=== PATIENT | male | born 1980 | race Caucasian/White ===

== ENCOUNTER 2017-01-08 03:40 | Emergency (ER) | payer MEDICARE, MEDICAID ==
[~2017-01-08] VITALS: Ht 180.3 cm; Wt 82.6 kg
[~2017-01-08 03:40] MED LIST: ALPRAZOLAM0.5 MG PO; NORCO 5-325 TA1 EAC1 ORAL; PROZAC20 MG ORAL
[2017-01-08 04:00] VITALS: BP 115/81
--- NOTE | 2017-01-08 04:04 | Emergency Room Report ---
History of Present Illness General Chief Complaint: Upper Extremity Injury Source: Patient Present Illness HPI Is a 36-year-old male with psychiatric history. He is a smoker. He presents with chief complaint shows of breath on and off for several months now. No fever or chills. No nausea no vomiting. Worse with coughing. Worse with exertion. No other complaint. Went to [facility] for the same thing and said that there were talking about them on inhaler prednisone but never did. Denies any other complaint Allergies: Uncoded Allergies: LITHIUM (Allergy, 02/27/12) Patient History Past Medical History: see triage record, old chart reviewed, psych hx Past Surgical History: none Pertinent Family History: none Social History: Reports: smoking Immunizations: other Reviewed Nursing Documentation: PMH: Agreed, PSxH: Agreed Review of Systems Eye: Denies: blurred vision, eye pain ENT: Denies: ear pain, nose congestion, throat swelling Respiratory: Reports: cough, shortness of breath Cardiovascular: Denies: chest pain, palpitations Gastrointestinal: Denies: abdominal pain, diarrhea, nausea, vomiting Musculoskeletal: Denies: back pain, joint pain Skin: Denies: rash Neurological: Denies: headache, numbness Endocrine: Denies: increased thirst, increased urine Hematologic/Lymphatic: Denies: easy bruising All Other Systems: negative except mentioned in HPI Physical Exam Vital Signs Date Time Temp Pulse Resp B/P Pulse Ox O2 Delivery O2 Flow Rate FiO2 01/08/17 03:46 97.5 98 18 115/81 98 Room Air vitals normal Sp02 EP Interpretation: reviewed, normal General Appearance: well appearing, no apparent distress, alert Head: normocephalic, atraumatic Eyes: bilateral eye EOMI, bilateral eye PERRL ENT: hearing grossly normal, normal pharynx Neck: full range of motion, supple, no meningismus Respiratory: chest non-tender, wheezing - Slight Cardiovascular #1: regular rate, rhythm, no murmur Gastrointestinal: normal bowel sounds, non tender, no mass, no organomegaly, no bruit, non-distended Musculoskeletal: back normal, gait/station normal, normal range of motion Psychiatric: mood/affect normal Skin: warm/dry Medical Decision Making Diagnostic Impression: Primary Impression: Bronchitis Additional Impression: Methamphetamine abuse ER Course Patient presents with shortness of breath and wheezing probably secondary to smoking methamphetamine. Lungs clear after breathing treatment. No evidence of pneumonia, sepsis, PE, ACS to name a few. We'll discharge home. Chest X-Ray Diagnostic Results Chest X-Ray Diagnostic Results : Chest X-Ray Ordered: Yes # of Views/Limited/Complete: 1 View Indication: Shortness of Breath EP Interpretation: Yes Interpretation: no consolidation, no effusion, no pneumothorax Impression: No acute disease Interpreting ER Provider: Electronically signed by Joey Allen MD Last Vital Signs Date Time Temp Pulse Resp B/P Pulse Ox O2 Delivery O2 Flow Rate FiO2 01/08/17 03:46 97.5 98 18 115/81 98 Room Air Status: improved Disposition: HOME, SELF-CARE Condition: Stable Scripts Prednisone* (PREDNISONE*) 20 Mg Tablet 60 MG ORAL DAILY, #12 TAB Prov: JOEY ALLEN M.D. 01/08/17 Albuterol Sulfate* (ALBUTEROL SULFATE MDI*) 8.5 Gm Hfa.aer.ad 2 PUFF INH Q4H Y for cough/wheezing, #1 EA 0 Refills Prov: JOEY ALLEN M.D. 01/08/17 Additional Instructions: Abstain from drugs and alcohol. Followup with your DrAce in 2 to 3 days. Return if worse. JOEY ALLEN M.D. Jan 08, 2017 04:04
[2017-01-08] MEDS ORDERED: Albuterol ud Inhalation HHN ONE (04:15)
[2017-01-08] MEDS ORDERED: PredniSONE 20mg tab ORAL ONE (04:15)
[2017-01-08] MEDS ORDERED: PREDNISONE20 MG ORAL (04:45)
[2017-01-08] MEDS ORDERED: ALBUTEROL SULF8.5 GM INH (04:45)
[2017-01-08 04:50] VITALS: BP 107/77
--- NOTE | 2017-01-11 09:02 | Diagnostic Imaging Report ---
Indication: SOB Technique: XRAY CHEST 1 V Comparison: None. Findings: The cardiomediastinal silhouette is normal. The lungs are clear. There is no evidence of pleural fluid. There is mild scoliosis of the thoracic spine convex to the right. Impression: Mild scoliosis convex to the right. Otherwise negative chest.
== END 2017-01-08 04:50 | disposition home or self-care (01) ==
LOC: EMR 04:05
DX: J20.9 Acute bronchitis, unspecified (principal); F15.10 Other stimulant abuse, uncomplicated; F17.200 Nicotine dependence, unspecified, uncomplicated; Z88.8 Allergy status to other drugs, medicaments and biological substances; M41.9 Scoliosis, unspecified
CPT/HCPCS: 71010; 94640; 94760; 99284

== ENCOUNTER 2017-01-24 16:24 | Emergency (ER) | payer MEDICARE, MEDICAID ==
[~2017-01-24] VITALS: Ht 180.3 cm; Wt 81.6 kg
[~2017-01-24 16:24] MED LIST changes: +ALBUTEROL SULF8.5 GM INH; +PREDNISONE20 MG ORAL
[2017-01-24 16:29] VITALS: BP 119/70
[2017-01-24] MEDS ORDERED: Ketorolac 60mg Inj IM ONE (17:15)
--- NOTE | 2017-01-24 17:40 | Emergency Room Report ---
History of Present Illness General Chief Complaint: Lower Extremity Injury Source: Patient (Edda Dumas) Present Illness HPI 36 -year-old male presents to the emergency department claiming of discoloration , thickened skin and progressive pain to the bottom of the right foot for" quite some time" he denies fevers, chills or appreciable trauma. he states that the skin is male cracking and has become painful which she rates as 10/10 in severity. denies itching. Patient states he has been applying bacitracin. Patient states that initially he noticed a black dot on the bottom of his foot and he did not do anything about it and his condition has progressed. he states he is up-to-date with tetanus vaccination. Denies CP, Palpitations, LOC, AMS, dizziness, Changes in Vision, Sensation, paresthesias, or a sudden severe headache. (Edda Dumas) Allergies: Uncoded Allergies: LITHIUM (Allergy, 02/27/12) Patient History Past Medical History: see triage record Past Surgical History: none Pertinent Family History: none Immunizations: UTD Reviewed Nursing Documentation: PMH: Agreed, PSxH: Agreed (Edda Dumas) Nursing Documentation-PMH Past Medical History: No History, Except For History Of Psychiatric Problem: Yes - depression, bipolar (Edda Dumas) Review of Systems All Other Systems: negative except mentioned in HPI (Edda Dumas) Physical Exam Vital Signs Date Time Temp Pulse Resp B/P Pulse Ox O2 Delivery O2 Flow Rate FiO2 01/24/17 16:29 98.2 81 18 119/70 98 Room Air Sp02 EP Interpretation: reviewed, normal General Appearance: no apparent distress, alert, GCS 15, non-toxic Head: normocephalic, atraumatic Eyes: bilateral eye normal inspection, bilateral eye PERRL ENT: hearing grossly normal, normal voice Neck: full range of motion, supple/symm/no masses Respiratory: lungs clear, normal breath sounds, speaking full sentences Cardiovascular #1: regular rate, rhythm Cardiovascular #2: 2+ dorsalis pedis (R), 2+ dorsalis pedis (L) Musculoskeletal: back normal, gait/station normal, normal range of motion, tender - TTP localized to the lesion on the plantar aspect of the right foot. no bony ttp Neurologic: alert, oriented x3, responsive, motor strength/tone normal, sensory intact, speech normal Psychiatric: judgement/insight normal, memory normal, other - flat affect. Skin: normal color, no rash, warm/dry, well hydrated, other - 3.5 cm Callous of the plantar aspect of the right foot. with dry cracking, no secondary infection at this time. no blisters, vessicles, erytehma, increased temperature to palpation or discharge noted. (Edda Dumas) Medical Decision Making PA Attestation Dr. Galaviz is my supervising Physician whom patient management has been discussed with. (Edda Dumas) Diagnostic Impression: Primary Impression: Callus of foot ER Course 36 -year-old male presents to the emergency department claiming of discoloration , thickened skin and progressive pain to the bottom of the right foot for" quite some time" he denies fevers, chills or appreciable trauma. he states that the skin is male cracking and has become painful which she rates as 10/10 in severity. denies itching. Patient states he has been applying bacitracin. Patient states that initially he noticed a black dot on the bottom of his foot and he did not do anything about it and his condition has progressed. he states he is up-to-date with tetanus vaccination. Denies CP, Palpitations, LOC, AMS, dizziness, Changes in Vision, Sensation, paresthesias, or a sudden severe headache. Ddx considered but are not limited to cellulitis, Callous, dermatitis, Psoriasis, eczema, tinea Vital signs: are WNL, pt. is afebrile H&PE are most consistent with 3.5 cm Callous of the plantar aspect of the right foot. with dry cracking, no secondary infection at this time. ORDERS: none required at this time, the diagnosis is clinical ED INTERVENTIONS: -The foot was cleaned by brewery technician. -Bacitracin is applied. d/w pt. that he will be prescribed topical creams, but it is imperative that he follow up with a household personal assistant. d/w pt. that he will receive a list of primary care clinics as a resource to use if he does not have a pcp in mind. d/w pt. that he will need a referral for household personal assistant. DISCHARGE: At this time pt. is stable for d/c to home. Will provide printed patient care instructions, and any necessary prescriptions. Care plan and follow up instructions have been discussed with the patient prior to discharge. (Edda Dumas) ER Course I examined this patient and agree with the treatment plan. (Prashanth Galaviz M.D.) Last Vital Signs Date Time Temp Pulse Resp B/P Pulse Ox O2 Delivery O2 Flow Rate FiO2 01/24/17 16:29 98.2 81 18 119/70 98 Room Air (Edda Dumas) Disposition: HOME, SELF-CARE Condition: Stable Scripts Ibuprofen* (MOTRIN*) 600 Mg Tablet 600 MG ORAL THREE TIMES A DAY, #20 TAB 0 Refills Prov: Edda Dumas 01/24/17 Bacitracin/Polymyxin B Sulfate (BACITRACIN-POLYMYXIN OINTMENT) 28.35 Gm Oint...g. 1 APPLIC TP BID, #28.3 GM Prov: Edda Dumas 01/24/17 Urea (Urea) 85 Gm Cream..g. 1 APPLIC TOPIC BID, #85 APPLIC Prov: Edda Dumas 01/24/17 Patient Instructions: Corns and Calluses, Urea skin cream, gel, lotion, ointment, or nail lacquer Additional Instructions: Take medications as directed. Follow up with a Primary Care Provider in 3-5 days for MATERIAL DISPATCHER REFERRAL AND EVALUATION, even if your symptoms have resolved. --Please review list of primary care clinics, if you do not already have a primary care provider Return sooner to ED if new symptoms occur, or current symptoms become worse. - Please note that this Emergency Department Report was dictated using [employer] hooker technology software, occasionally this can lead to erroneous entry secondary to interpretation by the dictation equipment. Edda Dumas Jan 24, 2017 17:40 Prashanth Galaviz M.D. Jan 26, 2017 06:02
[2017-01-24] MEDS ORDERED: Bacitracin Oint UD TOPIC ONE (18:00)
[2017-01-24] MEDS ORDERED: BACITRACIN-P28.35 GM TP (18:00)
[2017-01-24] MEDS ORDERED: IBUPROFEN600 MG ORAL (18:00)
[2017-01-24] MEDS ORDERED: UREA TOPIC (18:00)
[2017-01-24 18:20] VITALS: BP 119/70
== END 2017-01-24 18:20 | disposition home or self-care (01) ==
LOC: EMR 17:50
DX: L84 Corns and callosities (principal); F31.9 Bipolar disorder, unspecified; Z88.8 Allergy status to other drugs, medicaments and biological substances
CPT/HCPCS: 96372; 99284

== ENCOUNTER 2017-05-07 20:52 | Emergency (ER) | payer MEDICARE, MEDICAID ==
[~2017-05-07] VITALS: Ht 180.3 cm; Wt 77.1 kg
[~2017-05-07 20:52] MED LIST changes: +BACITRACIN-P28.35 GM TP; +IBUPROFEN600 MG ORAL; +UREA TOPIC
--- NOTE | 2017-05-07 21:21 | Emergency Room Report ---
History of Present Illness General Chief Complaint: Behavioral Complaint Source: Patient (Rene Barnhart) Present Illness HPI Patient is a 36-year-old male who presented after increased suicidal thoughts. Patient states that he last used amphetamines approximately a few hours prior to arrival. He reports having prior history bipolar disorder. He states that he takes psychiatric medications. The patient had not been having any fever. He denies any medical complaints. He states that he also took a pain pill. The patient states he was recently hospitalized at [place] (Rene Barnhart) Allergies: Uncoded Allergies: LITHIUM (Allergy, 02/27/12) Patient History Past Medical History: see triage record Reviewed Nursing Documentation: PMH: Agreed, PSxH: Agreed (Rene Barnhart) Nursing Documentation-PMH History Of Psychiatric Problem: Yes - BIPOLAR (Rene Barnhart) Review of Systems All Other Systems: negative except mentioned in HPI (Rene Barnhart) Physical Exam Vital Signs Date Time Temp Pulse Resp B/P (MAP) Pulse Ox O2 Delivery O2 Flow Rate FiO2 05/07/17 21:10 98.1 110 18 125/75 96 Room Air Sp02 EP Interpretation: reviewed, normal General Appearance: alert/responsive, no apparent distress, GCS 15, non-toxic Head: atraumatic Eyes: PERRL, lids + conjunctiva normal ENT: hearing intact, no angioedema Neck: supple/symm/no masses, no meningismus Respiratory: effort normal, no wheezing, chest symmetrical Cardiovascular: regular rate, rhythm, no edema Cardiovascular #2: 2+ carotid (R), 2+ carotid (L), 2+ dorsalis pedis (R), 2+ dorsalis pedis (L) Gastrointestinal: non-tender, no mass, non-distended, no rebound/guarding, normal bowel sounds Musculoskeletal: gait & station normal, strength & tone normal, normal ROM, non -tender Neurologic: oriented x3, sensory intact, normal speech Psychiatric: normal inspection, judgment & insight normal Skin: no rash, well hydrated Lymphatic: normal inspection (Rene Barnhart) Medical Decision Making Diagnostic Impression: Primary Impression: Behavioral change Additional Impressions: Leukocytosis Qualified Codes: D72.829 - Elevated white blood cell count, unspecified Suicidal behavior Qualified Codes: R46.89 - Other symptoms and signs involving appearance and behavior ER Course Patient presented for suicidal thoughts. Differential diagnoses include substance abuse, psychosis, bipolar disorder, depression, malingering. Because of complexity of patient's case laboratory testing and imaging studies were ordered. The patient was given medications of Zyprexa. (Rene Barnhart) ER Course Patient signed out to me by Dr Barnhart at 630 for re-eval Patient slept overnight Still endorsing SI - states he would "take a bunch of fentanyl" he would get from the street States he is depressed because his girlfriend is Previous suicide attempt by "Taking a bunch of pills." History of depression, on Prozac. Hasnt taken in a couple days "because I dont know why."\\ I reviewed labs: Leuks 14K. Repeat CBC shows downtrending. Urine Tox + for meth. He was given Zyprexa last night by Dr Barnhart Medically cleared for Psych evaluation/transfer [facility] psych facility accepted patient for transfer at 9am (BENITO SHEFFIELD M.D.) Last Vital Signs Date Time Temp Pulse Resp B/P (MAP) Pulse Ox O2 Delivery O2 Flow Rate FiO2 05/07/17 21:10 98.1 110 18 125/75 96 Room Air (Rene Barnhart) Status: improved (BENITO SHEFFIELD M.D.) Disposition: XFER TO PSYCH HOSP/UNIT Rene Barnhart May 07, 2017 21:21 BENITO SHEFFIELD M.D. May 08, 2017 07:40
[2017-05-07 21:58] LABS: BASOPHILS % (AUTO) 0.5 % (0.0-2.0); EOSINOPHILS % (AUTO) 0.1 % (0.0-3.0); LYMPHOCYTES % (AUTO) 11.7 % (20.0-45.0); MEAN CORPUSCULAR HEMOGLOBIN 30.5 PG (27.0-31.0); MEAN CORPUSCULAR VOLUME 90 FL (80-99); MEAN PLATELET VOLUME 5.7 FL (6.5-10.1); MONOCYTES % (AUTO) 5.9 % (1.0-10.0); NEUTROPHILS % (AUTO) 81.9 % (45.0-75.0); PLATELET COUNT 545 K/UL (150-450); RED BLOOD COUNT 4.67 M/UL (4.70-6.10); RED CELL DISTRIBUTION WIDTH 11.5 % (11.6-14.8); WHITE BLOOD COUNT 14.2 K/UL (4.8-10.8)
[2017-05-07 22:15] LABS: ANION GAP 12 mmol/L (5-15); CALCIUM 9.9 MG/DL (8.5-10.1); CARBON DIOXIDE 24 MMOL/L (21-32); CHLORIDE 100 MMOL/L (98-107); CREATININE 1.1 MG/DL (0.55-1.30); GLOMERULAR FILTRATION RATE > 60 mL/min (>60); POTASSIUM 4.5 MMOL/L (3.5-5.1); SODIUM 136 MMOL/L (136-145)
[2017-05-07 22:20] LABS: ALANINE AMINOTRANSFERASE 55 U/L (12-78); ALBUMIN/GLOBULIN RATIO 0.9 (1.0-2.7); ASPARTATE AMINO TRANSFERASE 32 U/L (15-37)
[2017-05-07 22:43] LABS: ACETAMINOPHEN < 2 MCG/ML (10-30); ALCOHOL < 3 mg/dL
[2017-05-08 00:42] VITALS: BP 118/67
[2017-05-08 07:17] VITALS: BP 105/72
[2017-05-08 08:04] LABS: BASOPHILS % (AUTO) 0.7 % (0.0-2.0); EOSINOPHILS % (AUTO) 0.9 % (0.0-3.0); LYMPHOCYTES % (AUTO) 21.9 % (20.0-45.0); MEAN CORPUSCULAR HEMOGLOBIN 30.1 PG (27.0-31.0); MEAN CORPUSCULAR HGB CONC 33.1 G/DL (32.0-36.0); MEAN CORPUSCULAR VOLUME 91 FL (80-99); MEAN PLATELET VOLUME 5.7 FL (6.5-10.1); MONOCYTES % (AUTO) 2.7 % (1.0-10.0); NEUTROPHILS % (AUTO) 73.8 % (45.0-75.0); PLATELET COUNT 426 K/UL (150-450); RED BLOOD COUNT 4.64 M/UL (4.70-6.10); WHITE BLOOD COUNT 11.6 K/UL (4.8-10.8)
[2017-05-08 08:14] LABS: APPEARANCE,URINE CLEAR; KETONES,URINE 1+ (NEGATIVE); LEUKOCYTE ESTERASE ,URINE NEGATIVE (NEGATIVE); NITRITE,URINE NEGATIVE (NEGATIVE); PH,URINE 5 (4.5-8.0); PROTEIN,URINE 1+ (NEGATIVE); UROBILINOGEN,URINE NORMAL MG/DL (0.0-1.0)
[2017-05-08] MEDS ORDERED: DURAGESIC1 E1 TOPIC (08:21)
[2017-05-08 08:23] LABS: BACTERIA,URINE OCCASIONAL /HPF; RBC,URINE 0 /HPF (0 - 0); SQUAMOUS EPITHELIAL CELL,UR OCCASIONAL /LPF (NONE/OCC); WBC,URINE 0-2 /HPF (0 - 0)
[2017-05-08 08:24] LABS: MUCUS,URINE MODERATE /LPF (NONE/OCC)
--- NOTE | 2017-05-08 10:12 | Diagnostic Imaging Report ---
Indication: Dyspnea Comparison: 01/08/17 A single view chest radiograph was obtained. Findings: Cardiomediastinal appearance is within normal limits for age. Pulmonary vascularity is appropriate. The diaphragmatic contour is smooth and costophrenic angles are sharp. No pleural effusions are identified. The bones are unremarkable. Impression: No acute findings
[2017-05-08 10:52] VITALS: BP 112/67
== END 2017-05-08 10:52 ==
LOC: EMR 21:40
DX: F91.9 Conduct disorder, unspecified (principal); R45.851 Suicidal ideations; D72.829 Elevated white blood cell count, unspecified
CPT/HCPCS: 36415; 71010; 80053; 80307; 81003; 84484; 85025; 99285; G0480; 80329

== ENCOUNTER 2018-05-14 04:31 | Emergency (ER) | payer MEDICARE, MEDICAID ==
[~2018-05-14] VITALS: Ht 180.3 cm; Wt 81.6 kg
[~2018-05-14 04:31] MED LIST changes: +DURAGESIC1 E1 TOPIC
[2018-05-14 04:40] VITALS: BP 134/87
[2018-05-14] MEDS ORDERED: ADDERAL20 MG ORAL (04:46)
[2018-05-14] MEDS ORDERED: PROZAC20 MG ORAL (04:46)
[2018-05-14] MEDS ORDERED: Augmentin 875mg Tab ORAL ONE (05:15)
[2018-05-14] MEDS ORDERED: HYDROCODON-ACE1 EA15 ORAL (05:16)
[2018-05-14] MEDS ORDERED: AUGMENTIN 875-1 EAC1 ORAL (05:16)
[2018-05-14] MEDS ORDERED: IBUPROFEN600 MG ORAL (05:16)
--- NOTE | 2018-05-14 05:16 | Emergency Room Report ---
History of Present Illness General Chief Complaint: Toothache Source: Patient, Medical Record Present Illness HPI Is a 37-year-old male with no significant past medical issue. He presents with chief complaint of dental pain and jaw pain. Onset for last 3 days. Now with swelling. Was bleeding. Worse with palpation. No fever chills but no drainage. Similar symptom in the past. Allergies: Uncoded Allergies: LITHIUM (Allergy, 02/27/12) Patient History Past Medical History: see triage record, old chart reviewed Past Surgical History: other Pertinent Family History: none Social History: Reports: smoking, drug use Immunizations: other Reviewed Nursing Documentation: PMH: Agreed; PSxH: Agreed Nursing Documentation-PMH Past Medical History: No Stated History History Of Psychiatric Problem: Yes - mood disorder Review of Systems Eye: Denies: eye pain, blurred vision ENT: Denies: ear pain, nose congestion, throat swelling Respiratory: Denies: cough, shortness of breath Cardiovascular: Denies: chest pain, palpitations Gastrointestinal: Denies: abdominal pain, diarrhea, nausea, vomiting Musculoskeletal: Denies: back pain, joint pain Skin: Denies: rash Neurological: Denies: headache, numbness Endocrine: Denies: increased thirst, increased urine Hematologic/Lymphatic: Denies: easy bruising All Other Systems: negative except mentioned in HPI Physical Exam Vital Signs Date Time Temp Pulse Resp B/P (MAP) Pulse Ox O2 Delivery O2 Flow Rate FiO2 05/14/18 04:39 98.1 96 16 122/74 99 Room Air vitals normal Sp02 EP Interpretation: reviewed, normal General Appearance: well appearing, no apparent distress, alert Head: normocephalic, atraumatic Eyes: bilateral eye PERRL, bilateral eye EOMI ENT: hearing grossly normal, normal pharynx, other - Right lower first molar, there is some swelling on the bucal side. Percussive tenderness. Neck: full range of motion, supple, no meningismus Respiratory: chest non-tender, lungs clear, normal breath sounds Cardiovascular #1: regular rate, rhythm, no murmur Gastrointestinal: normal bowel sounds, non tender, no mass, no organomegaly, no bruit, non-distended Musculoskeletal: back normal, gait/station normal, normal range of motion Psychiatric: mood/affect normal Skin: warm/dry Procedures Incision and Drainage Incision and Drainage : Consent: Verbal Site: Dental Blade Size: 11 Wound Location: other - Dental Wound's Depth, Shape: superficial Anesthesia: 1% Lidocaine Volume Anesthetic (ccs): 3 Patient Tolerated: Well Complications: None Progress I did a inferior alveolar block with 1% lidocaine without epinephrine. Total 2 mL injected. I also did a local block with 1% lidocaine without epinephrine. 1 mL injected. I made a 170 decision with 11 blade scalpel. Small amount of pus expressed. Patient tolerated procedure without a problem. No complication. Medical Decision Making Diagnostic Impression: Primary Impression: Dental abscess ER Course Patient with a dental abscess. No evidence of any necrotizing fasciitis or deep infection. No Tony angina. We'll discharge home. Patient said he has a couple dentist. Last Vital Signs Date Time Temp Pulse Resp B/P (MAP) Pulse Ox O2 Delivery O2 Flow Rate FiO2 05/14/18 04:40 98.5 97 17 134/87 99 Room Air Status: improved Disposition: HOME, SELF-CARE Condition: Stable Scripts Ibuprofen* (MOTRIN*) 600 Mg Tablet 600 MG ORAL THREE TIMES A DAY, #30 TAB 0 Refills Prov: Joey Allen MD 05/14/18 Hydrocodone/Acetaminophen 5-325* (HYDROCODONE/ACETAMINOPHEN 5-325*) 1 Each Tablet 1 TAB ORAL Q6H PRN for For Pain, #10 TAB 0 Refills Prov: Joey Allen MD 05/14/18 Amoxicillin/Potassium Clav 875-125* (AUGMENTIN 875-125 TABLET*) 1 Each Tablet 1 TAB ORAL TWICE A DAY, #14 TAB Prov: Joey Allen MD 05/14/18 Referrals: NOT CHOSEN IPA/,REFERRING (PCP) Additional Instructions: Follow-up with dentist JABIER. Return if symptom worsen. Joey Allen MD May 14, 2018 05:16
[2018-05-14 05:29] VITALS: BP 134/87
[2018-05-14] MEDS ORDERED: Norco 5mg/325mg tab ORAL ONE (05:30)
== END 2018-05-14 05:31 | disposition home or self-care (01) ==
LOC: EMR 05:08
DX: K04.7 Periapical abscess without sinus (principal); F17.200 Nicotine dependence, unspecified, uncomplicated; Z88.8 Allergy status to other drugs, medicaments and biological substances; F39 Unspecified mood [affective] disorder
CPT/HCPCS: 99283

== ENCOUNTER 2018-06-01 12:15 | Emergency (ER) | payer MEDICARE, MEDICAID ==
[~2018-06-01] VITALS: Ht 180.3 cm; Wt 74.4 kg
[~2018-06-01 12:15] MED LIST changes: +ADDERAL20 MG ORAL; +AUGMENTIN 875-1 EAC1 ORAL; +HYDROCODON-ACE1 EA15 ORAL
[2018-06-01] MEDS ORDERED: NKM (12:32)
[2018-06-01 12:49] VITALS: BP 98/74
--- NOTE | 2018-06-01 13:15 | Emergency Room Report ---
History of Present Illness General Chief Complaint: Toothache Source: Patient Present Illness HPI 37 YO Male presents to the ED C/o 10/13 in severity . Pain to the lower left back molar 3 days and swelling along the gums near painful tooth. Patient reports needing dental work done but having extreme anxiety and fear of the dentist's. Patient reports in the past he has had an infection in this area that required drainage. Patient states he is having significant anxiety regarding his illness and that he is very afraid of dentists. Patient denies trauma or fall he denies fevers or chills. He states he began taking an unknown abx that he had left over. pain exacerbated with palpation, eating, or drinking cold fluids. pt. denies relieving factors. Allergies: Uncoded Allergies: LITHIUM (Allergy, 02/27/12) Patient History Past Medical History: see triage record Past Surgical History: none Pertinent Family History: none Reviewed Nursing Documentation: PMH: Agreed; PSxH: Agreed Nursing Documentation-PMH Past Medical History: No Stated History Review of Systems All Other Systems: negative except mentioned in HPI Physical Exam Vital Signs Date Time Temp Pulse Resp B/P (MAP) Pulse Ox O2 Delivery O2 Flow Rate FiO2 06/01/18 12:30 98.4 132 18 95/64 95 Room Air Sp02 EP Interpretation: reviewed, normal General Appearance: no apparent distress, alert, GCS 15, non-toxic Head: normocephalic, atraumatic Eyes: bilateral eye normal inspection, bilateral eye PERRL ENT: hearing grossly normal, normal voice, other - tenderness to percussion to the back lower left molar, visible cavity noted, no fluctuance about the gumline , no palpable swelling about the gumline or cheek. Neck: full range of motion Respiratory: lungs clear, normal breath sounds, speaking full sentences Cardiovascular #1: regular rate, rhythm Musculoskeletal: back normal, gait/station normal, normal range of motion Neurologic: alert, oriented x3, responsive, motor strength/tone normal, sensory intact, speech normal, grossly normal Psychiatric: judgement/insight normal Skin: normal color, no rash, warm/dry, well hydrated Lymphatic: no adenopathy Medical Decision Making PA Attestation Dr. Trejo is my supervising Physician whom patient management has been discussed with. Diagnostic Impression: Primary Impression: Pericoronitis Additional Impression: Dental cavity ER Course 37 YO Male presents to the ED C/o 10/13 in severity . Pain to the lower left back molar 3 days and swelling along the gums near painful tooth. Patient reports needing dental work done but having extreme anxiety and fear of the dentist's. Patient reports in the past he has had an infection in this area that required drainage. Patient states he is having significant anxiety regarding his illness and that he is very afraid of dentists. Patient denies trauma or fall he denies fevers or chills. He states he began taking an unknown abx that he had left over. pain exacerbated with palpation, eating, or drinking cold fluids. pt. denies relieving factors. Ddx considered but are not limited to cellulitis, dental abscess, orbital cellulitis, d/l tooth, dental pain. trigeminal neuralgia Vital signs: are WNL, pt. is afebrile H&PE are most consistent with pericoronitis, no obvious signs of gum abscess or areas of fluctuance. no obvious swelling either. ORDERS: none required at this time, the diagnosis is clinical ED INTERVENTIONS: None required at this time. --Pt. given reassurance as well as encouragement to see the dentist and explained that in the ED setting dental knowledge and necessary resources are limited. DISCHARGE: At this time pt. is stable for d/c to home. Will provide printed patient care instructions, and any necessary prescriptions. Care plan and follow up instructions have been discussed with the patient prior to discharge. Last Vital Signs Date Time Temp Pulse Resp B/P (MAP) Pulse Ox O2 Delivery O2 Flow Rate FiO2 06/01/18 12:49 98.4 88 18 98/74 96 Room Air Disposition: HOME, SELF-CARE Condition: Stable Scripts Benzocaine (ANBESOL) 12 Ml Liquid 1 APPLIC MM Q6HR, #12 ML Prov: Edda Dumas 06/01/18 Ibuprofen* (MOTRIN*) 600 Mg Tablet 600 MG ORAL THREE TIMES A DAY, #30 TAB 0 Refills Prov: Edda Dumas 06/01/18 Amoxicillin/Potassium Clav 875-125* (AUGMENTIN 875-125 TABLET*) 1 Each Tablet 1 TAB ORAL TWICE A DAY for 7 Days, #14 TAB Prov: Edda Dumas 06/01/18 Patient Instructions: Dental Pain Additional Instructions: Take medications as directed. Follow up with a Dentist in 3-5 days, even if your symptoms have resolved. * * Return sooner to ED if new symptoms occur, or current symptoms become worse. - Please note that this Emergency Department Report was dictated using [employer] driver technology software, occasionally this can lead to erroneous entry secondary to interpretation by the dictation equipment. Edda Dumas Jun 01, 2018 13:15
[2018-06-01] MEDS ORDERED: IBUPROFEN600 MG ORAL (13:16)
[2018-06-01] MEDS ORDERED: ANBESOL12 ML MM (13:16)
[2018-06-01] MEDS ORDERED: AUGMENTIN 875-1 EAC1 ORAL (13:16)
[2018-06-01 13:21] VITALS: BP 125/88
== END 2018-06-01 13:34 | disposition home or self-care (01) ==
LOC: EMR 13:11
DX: K05.30 Chronic periodontitis, unspecified (principal); K08.89 Other specified disorders of teeth and supporting structures
CPT/HCPCS: 99283

== ENCOUNTER 2018-06-12 06:51 | Emergency (ER) | payer MEDICARE, MEDICAID ==
[~2018-06-12] VITALS: Ht 180.3 cm; Wt 74.8 kg
[~2018-06-12 06:51] MED LIST changes: +ANBESOL12 ML MM; +NKM
[2018-06-12 07:00] VITALS: BP 130/83
--- NOTE | 2018-06-12 07:10 | NUR ---
ED Nurse Note: received pt from ANAYELI Peguero. Pt c/o generlized pain. Pt reports that he normally takes 1mg of Xanax but ran out. Pt reports that he is having marital issue but no SI/HI. Will continue to monitor.
[2018-06-12] MEDS ORDERED: ALPRAZOLAM0.5 MG PO (07:15)
[2018-06-12] MEDS ORDERED: LORazepam 1mg tab ORAL ONE (07:30)
[2018-06-12] MEDS ORDERED: ALPRAZOLAM0.25 MG ORAL (08:15)
[2018-06-12 08:30] VITALS: BP 130/83
--- NOTE | 2018-06-12 08:30 | NUR ---
ED Nurse Note: Patient is being discharged from medical care. Awake, alert and oriented x4. After care instructions, including prescriptions. Patient verbalized understanding of After care instructions. Patient signed patient consent in the medical record for patient destination upon discharge. All medical devices such as IV and ID band were removed. Patient ambulated out with all personal belongings with steady gait.
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
== END 2018-06-12 08:30 | disposition home or self-care (01) ==
LOC: EMR 07:43
DX: F41.9 Anxiety disorder, unspecified (principal); Z88.8 Allergy status to other drugs, medicaments and biological substances
CPT/HCPCS: 99282

== ENCOUNTER 2018-12-14 22:16 | Emergency (ER) | payer MEDICARE, MEDICAID ==
[~2018-12-14] VITALS: Ht 180.3 cm; Wt 79.4 kg
[~2018-12-14 22:16] MED LIST changes: +ALPRAZOLAM0.25 MG ORAL
[2018-12-14 22:30] VITALS: BP 110/71
--- NOTE | 2018-12-14 22:32 | Emergency Room Report ---
History of Present Illness General Chief Complaint: Behavioral Complaint Source: Patient Present Illness HPI This is a 38-year-old male with a history of anxiety. He presents with chief complaint of feeling suicidal. No particular plan. He said he is felt suicidal [place] When I asked if he still to her, he said he is . He denies any particular plan. Denies being homeless. Denies any drug use. Denies any recent psych admission. Allergies: Uncoded Allergies: LITHIUM (Allergy, 02/27/12) Patient History Past Medical History: see triage record, old chart reviewed, psych hx Past Surgical History: none Family History: none Social History: tobacco use, drug use, Immunizations: other Reviewed Nursing Documentation: PMH: Agreed; PSxH: Agreed Nursing Documentation-PMH History Of Psychiatric Problem: Yes Review of Systems ENT: Denies: sore throat Cardiovascular: Denies: chest pain, palpitations Gastrointestinal/Abdominal: Denies: nausea, vomiting, diarrhea Musculoskeletal: Denies: back problems Skin: Denies: rash Psychiatric: Reports: prior hx, prior history, anxiety, suicidal/homicidal ideations Neurological: Denies: JEAN BAPTISTE, seizures All Other Systems: negative except mentioned in HPI Physical Exam vitals stable Sp02 EP Interpretation: reviewed, normal General Appearance: alert/responsive, no apparent distress, non-toxic Head: normocephalic, atraumatic Eyes: PERRL, EOMI ENT: oropharynx normal Neck: supple/symm/no masses Respiratory: effort normal, no rhonchi, no wheezing Cardiovascular: no murmur, gallop, rub Gastrointestinal: non-tender, no mass, non-distended, no rebound/guarding, normal bowel sounds Musculoskeletal: gait & station normal, other - IV mishra and tape mishra on his right arm Neurologic: oriented x3, sensory intact, motor strength/tone normal Psychiatric: anxious, other - Patient is very jittery Suicide Risk Assessment: Suicidal Ideation: Yes Had intent to initiate attempt: No Pt's plan for suicide attempt: No Has means to complete attempt: No Skin: no rash, normal palpation Medical Decision Making Diagnostic Impression: Primary Impression: Polysubstance abuse Additional Impression: Anxiety ER Course Patient denies any recent psychiatric admission. He said that he was admitted to [facility] he had an accident and fell and had a severe injury with muscle tear on his left flank. He said he had rhabdo and had IV for a week. This occurred just 2 weeks ago. He showed no evidence of any injury to his left flank. There is no ecchymosis. On the [employer] system, he has multiple prescription from different doctors. Most recently he had lorazepam prescription filled on December 11. I suspect that he was recently discharged from a psychiatric facility. Patient slept through the night. He has polysubstance abuse. He is no longer suicidal. Will discharge home. No longer meet criteria for 5150. This patient is a chronic risk of self injury due to poor impulse control, limited coping skills, and judgment intermittently impaired by intoxication. I believe that the available clinical evidence to suggest that these characteristics derived primarily from personality disorder and are likely very stable over time. Hospitalization would likely attenuate risk of self-harm only during detention period, without lasting risk reduction. Serious self-harm , while possible, would likely be inadvertent, and because of impulsivity, and foreseeable. For these reasons, I do not believe hospitalization would provide meaningful reduction in risk of self-harm. Status: improved Disposition: HOME, SELF-CARE Condition: Stable Patient Instructions: Self-Destructive Behavior Additional Instructions: Stop using drugs. Follow-up with your doctor in 7 days. Go to rehab. Return if worse. Joey Allen MD Dec 14, 2018 22:32
[2018-12-14 23:30] LABS: BASOPHILS % (AUTO) 0.9 % (0.0-2.0); EOSINOPHILS % (AUTO) 0.9 % (0.0-3.0); HEMOGLOBIN 12.8 G/DL (14.2-18.0); LYMPHOCYTES % (AUTO) 18.2 % (20.0-45.0); MEAN CORPUSCULAR VOLUME 88 FL (80-99); MONOCYTES % (AUTO) 8.4 % (1.0-10.0); NEUTROPHILS % (AUTO) 71.5 % (45.0-75.0); PLATELET COUNT 423 K/UL (150-450); RED BLOOD COUNT 4.09 M/UL (4.70-6.10); RED CELL DISTRIBUTION WIDTH 10.2 % (11.6-14.8); WHITE BLOOD COUNT 13.3 K/UL (4.8-10.8)
[2018-12-14 23:30] LABS: APPEARANCE,URINE CLEAR; BILIRUBIN, URINE NEGATIVE (NEGATIVE); GLUCOSE, URINE (UA) NEGATIVE (NEGATIVE); KETONES,URINE NEGATIVE (NEGATIVE); LEUKOCYTE ESTERASE ,URINE NEGATIVE (NEGATIVE); NITRITE,URINE NEGATIVE (NEGATIVE); PH,URINE 5 (4.5-8.0); PROTEIN,URINE NEGATIVE (NEGATIVE); UROBILINOGEN,URINE NORMAL MG/DL (0.0-1.0)
--- NOTE | 2018-12-14 23:30 | NUR ---
ED Nurse Note: Pt stated he is SI and depressed. Pt stated his plan is to take pills; has not attempted. VSS. PT'S BELONGINGS IN PSYCH LOCKER #2
[2018-12-14 23:32] LABS: COLOR,URINE YELLOW
[2018-12-14 23:41] LABS: ANION GAP 6 mmol/L (5-15); BLOOD UREA NITROGEN 36 mg/dL (7-18); CALCIUM 9.5 MG/DL (8.5-10.1); CARBON DIOXIDE 29 MMOL/L (21-32); CHLORIDE 107 MMOL/L (98-107); CREATININE 1.6 MG/DL (0.55-1.30); POTASSIUM 3.9 MMOL/L (3.5-5.1); SODIUM 142 MMOL/L (136-145)
[2018-12-14 23:45] LABS: ALANINE AMINOTRANSFERASE 30 U/L (12-78); ALBUMIN 4.1 G/DL (3.4-5.0); ALBUMIN/GLOBULIN RATIO 1.3 (1.0-2.7); ALKALINE PHOSPHATASE 110 U/L (46-116); ASPARTATE AMINO TRANSFERASE 67 U/L (15-37); BILIRUBIN,TOTAL 0.8 MG/DL (0.2-1.0)
[2018-12-15 01:30] VITALS: BP 124/68
--- NOTE | 2018-12-15 01:30 | NUR ---
ED Nurse Note: pt resting in bed, eyes closed, non-labored breathing. Pt arousable to name, will continue to monitor. VSS
--- NOTE | 2018-12-15 03:38 | NUR ---
ED Nurse Note: Pt offered food, water and toiletting, pt declined at this time. No signs of distress. VSS. will continue to monitor
[2018-12-15 03:39] VITALS: BP 115/68
[2018-12-15 05:30] VITALS: BP 127/72
--- NOTE | 2018-12-15 05:30 | NUR ---
ED Nurse Note: Pt resting in bed with eyes closed, non-labored breathing, no signs of distress. Pt accepted a sandwhich and juice ealier. no further orders at this time. will continue to monitor
[2018-12-15 06:20] VITALS: BP 127/72
--- NOTE | 2018-12-15 06:20 | NUR ---
ER DISCHARGE NOTE: Patient is cleared to be discharged per ERMD, pt is aox4, on room air, with stable vital signs. pt was given dc and prescription instructions, pt was able to verbalize understanding, pt id band and iv site removed without complications. pt is able to ambulate with steady gait. pt took all belongings. Addendum: 12/15/18 at 0626 by ALLYING Pt states he is no longer feeling suicidal, pt given resources for mental health. Encouraged to call suicide hotline or come back to ED if the feeling comes back, verbalized understanding
== END 2018-12-15 06:20 | disposition home or self-care (01) ==
LOC: EMR 12-15 00:40
DX: F19.10 Other psychoactive substance abuse, uncomplicated (principal); F41.9 Anxiety disorder, unspecified
CPT/HCPCS: 36415; 80053; 80307; 81003; 85025; 99284; G0480; 80329